=== PATIENT | male | born 1945 | race Caucasian/White ===

== ENCOUNTER → 2024-08-30 | Outpatient (CLI) | payer MEDICARE, BC, SELFPAY ==
--- NOTE | 2024-08-30 12:59 | MRI_ITS ---
PROCEDURE: PELVIS W/WO CONTRAST ([id number]), 08/30/2024 REASON FOR EXAM: ELEVATED PSA TECHNIQUE: Multisequence multiplanar MRI pelvis was performed with and without IV contrast. CONTRAST: 12 mL Clariscan COMPARISON: None FINDINGS: Variable overall mild motion limitation. Note moderately motion degraded small [id number] axial T2 and large [id number] axial T1 postcontrast sequences, which are barone sequences. Diffusion limited by artifact related to bowel gas, particularly limiting evaluation posteriorly in the area of lesion 1 below. The effect of these limitations is magnified by the small size of the gland. Prostate size: 4.3 x 3.3 x 3.6 cm, estimated volume 26.5 mL. Transition zone: No clear high-risk lesion allowing for limitations. PI-RADS 2 findings. Peripheral Zone: Lesions as below: *Lesion 1: LEFT posterior peripheral zone base to midgland and LEFT central zone, 1.7 cm (series 11 image 14. *T2 score: 5. *DWI score: 3. *DCE: Positive. *Overall PI-RADS: 4 *Extracapsular extension:No definite extracapsular extension allowing for motion limited imaging, however, there is capsular abutment greater than 1 cm which increases the risk of occult early/microscopic extracapsular extension. Note that this includes abutment of the LEFT neurovascular bundle and base of the LEFT seminal vesicle, without definite invasion allowing for limitations. *Lesion 2: Virtually the entire remainder of the posterior peripheral zones demonstrates mild restricted diffusion and moderate ill-defined T2 hypointensity spanning the diameter of the gland, roughly 4.1 cm (series 11 image 17). *T2 score: 3 *DWI score: 3 *DCE: Negative. *Overall PI-RADS: 3 *Extracapsular extension:No gross extracapsular extension allowing for limitations, however, there is diffuse capsular abutment well over 1 cm which again increases the risk of occult early/microscopic extracapsular extension. Note that this includes the regions of the bilateral neurovascular bundles, anterior rectum, and base of the bilateral seminal vesicles without gross involvement allowing for limitations. Neurovascular bundles: As above. Seminal vesicles: As above. Bladder: Appearance suggests chronic bladder outlet obstruction.. Lymph nodes: Unremarkable. Bones: No destructive bony lesion identified. Nonspecific 5 mm enhancing focus in the LEFT sacrum adjacent to the anterior SI joint. Other: Diverticulosis.. MRI/Pelvis W/WO Contrast IMPRESSION: 1. Limited exam as above. If prostate cancer is found to be present, would con reception specialist a follow-up exam with best attempt at bowel prep and motion control for improved delineation of the below findings. 2. 1.7 cm PI-RADS 4 lesion in the LEFT posterior peripheral zone base to midgla nd and LEFT central zone (lesion 1). 3. Diffuse signal abnormality within virtually the entire remainder of the post erior bilateral peripheral zones spanning the roughly 4.1 cm diameter of the gland. Although this could reflect sequela of a dvanced prostatitis, an infiltrative low-grade neoplasm could have this appearance. 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 4. Although there is no gross extracapsular extension, for early extracapsular extension would be difficult to exclude given limitations. Additionally, there is capsular abutment well over 1 cm by both l esions which increases the risk of occult early/microscopic extracapsular extension. Note that this includes the regions of the bilateral neurovascular bundles, anterior rectum, and bases of the bilateral seminal vesicles without gross involvement a llowing for limitations. 5. Nonspecific 5 mm enhancing focus in the LEFT sacrum adjacent to the anterior SI joint may be degenerative however this is not definite. Clinical follow-up recommended. 6. No overt pelvic lymphadenopathy. 7. Additional description as above. Reading Location: [id number]
== END | disposition home or self-care (01) ==
PROVIDERS: PCP Student in an Organized Health Care Education/Training Program; Referring Provider Nurse Practitioner Family; Visit Provider Nurse Practitioner Family
DX: R97.20 Elevated prostate specific antigen [PSA] (principal); Z03.89 Encounter for observation for other suspected diseases and conditions ruled out
CPT/HCPCS: 72197; A9575; A4216